=== PATIENT | female | born 1960 | race Caucasian/White ===

== ENCOUNTER → 2016-04-20 | Outpatient (REF) | payer OTHER ==
[~2016-04-20] MED LIST: AMLO10TA PO; AMLO10TA2 PO; AMLO5TAB2 PO; DRIS50002 PO; ESTR125TA PO; FILG30VL SC; NORCOTAB PO
[2016-04-20 17:53] LABS: CALCIUM OXALATE CRYSTALS SMALL
== END ==
LOC: M LAB REF 16:21
PROVIDERS: ATTEND Internal Medicine Medical Oncology
DX: C56.9 Malignant neoplasm of unspecified ovary (principal)

== ENCOUNTER → 2016-05-11 | Outpatient (REF) | payer OTHER | LOC: M LAB REF 16:25 | PROVIDERS: ATTEND Internal Medicine Medical Oncology | DX: C56.9 Malignant neoplasm of unspecified ovary (principal) ==

== ENCOUNTER → 2016-06-09 | Outpatient (REF) | payer OTHER | LOC: M LAB REF 16:59 | PROVIDERS: ATTEND Internal Medicine Medical Oncology | DX: C56.9 Malignant neoplasm of unspecified ovary (principal) ==

== ENCOUNTER → 2016-06-30 | Outpatient (REF) | payer OTHER | LOC: M LAB REF 16:24 | PROVIDERS: ATTEND Internal Medicine Medical Oncology | DX: C56.9 Malignant neoplasm of unspecified ovary (principal) ==

== ENCOUNTER → 2016-07-21 | Outpatient (REF) | payer OTHER | LOC: M LAB REF 15:19 | PROVIDERS: ATTEND Internal Medicine Medical Oncology | DX: C56.9 Malignant neoplasm of unspecified ovary (principal) ==

== ENCOUNTER → 2016-08-16 | Outpatient (REF) | payer OTHER | LOC: M LAB REF 17:07 | PROVIDERS: ATTEND Internal Medicine Medical Oncology | DX: C56.9 Malignant neoplasm of unspecified ovary (principal) ==

== ENCOUNTER → 2016-09-06 | Outpatient (CLI) | payer OTHER ==
--- NOTE | 2016-09-07 10:42 | REP ---
PET/CT: HISTORY: Restaging ovarian cancer. Increased tumor markers. Comparison PET/CT study March 02, 2016. TECHNIQUE: 50 minutes following the intravenous injection of a 8.8 mCi dose of F-18 FDG, three-dimensional PET scintigraphy is acquired from the skull base to the proximal thighs. Triplanar noncontrast CT scanning is acquired through the same anatomic range for attenuation correction, and image registration with scan parameters optimized to minimize radiation exposure to the patient. PET scintigraphy and CT datasets were fused and displayed on a workstation with multiplanar and projection display capability. PET/CT FINDINGS: There is a somewhat linear and nodular area of hypermetabolic tissue in the left pelvis above the level of the inguinal canal and medial to the anterior iliac crest. Maximum standard uptake value here remains elevated at 4.0 . This was previously 3.7. Uptake value is 3.9 on August 06, 2015 study in this location. Today's PET/CT study shows no hypermetabolic uptake discernible in the aortocaval lymph node which was visible in the August 06, 2015 study. No other abnormal abdominal or pelvic FDG accumulation is appreciated. No abnormal hypermetabolic uptake is seen in the chest. Head and neck FDG distribution is unremarkable. The previously noted internal mammary focus is no longer seen. IMPRESSION: Persistent soft tissue density with associated hypermetabolic uptake in the left anterolateral pelvic wall just above the inguinal canal. Degree of FDG uptake is essentially unchanged. No other abnormal hypermetabolic uptake seen. Signed by Panda Maddox MD 09/07/2016 02:09 P
== END ==
LOC: M PLARAD 15:17
PROVIDERS: ATTEND Internal Medicine Medical Oncology
DX: C56.9 Malignant neoplasm of unspecified ovary (principal)
CPT/HCPCS: 78815; A9552

== ENCOUNTER → 2016-09-30 | Outpatient (REF) | payer OTHER | LOC: M LAB REF 12:49 | PROVIDERS: ATTEND Internal Medicine Medical Oncology | DX: C56.9 Malignant neoplasm of unspecified ovary (principal) ==

== ENCOUNTER → 2016-10-20 | Outpatient (REF) | payer OTHER | LOC: M LAB REF 12:18 | PROVIDERS: ATTEND Internal Medicine Medical Oncology | DX: C56.9 Malignant neoplasm of unspecified ovary (principal) ==

== ENCOUNTER → 2016-11-10 | Outpatient (REF) | payer OTHER | LOC: M LAB REF 13:03 | PROVIDERS: ATTEND Internal Medicine Medical Oncology | DX: C56.9 Malignant neoplasm of unspecified ovary (principal) ==

== ENCOUNTER → 2016-12-01 | Outpatient (REF) | payer OTHER | LOC: M LAB REF 17:31 | PROVIDERS: ATTEND Internal Medicine Medical Oncology | DX: C56.9 Malignant neoplasm of unspecified ovary (principal) ==

== ENCOUNTER → 2017-01-12 | Outpatient (REF) | payer OTHER ==
[2017-01-12 19:35] LABS: FREE T4 0.96 NG/DL (0.76-1.46)
[2017-01-13 09:22] LABS: CA 125 27.8 U/ML (<30.2)
== END ==
LOC: M LAB REF 18:34
PROVIDERS: ATTEND Internal Medicine Medical Oncology
DX: C56.9 Malignant neoplasm of unspecified ovary (principal)

== ENCOUNTER → 2017-03-16 | Outpatient (REF) | payer OTHER | LOC: M LAB REF 17:47 | PROVIDERS: ATTEND Internal Medicine Medical Oncology | DX: C56.9 Malignant neoplasm of unspecified ovary (principal) ==

== ENCOUNTER → 2017-04-24 | Outpatient (CLI) | payer OTHER ==
[~2017-04-24] MED LIST changes: -AMLO10TA PO; -AMLO10TA2 PO; -AMLO5TAB2 PO; -DRIS50002 PO; -ESTR125TA PO; -FILG30VL SC; +GASTROGRAFIN SOLUTION 30ML (Q9963) As Ordered; +ISOVUE-370 76% 100ML VIAL (Q9967) As Ordered; -NORCOTAB PO
== END ==
LOC: M RAD 14:01
DX: C56.9 Malignant neoplasm of unspecified ovary (principal)

== ENCOUNTER → 2017-05-18 | Outpatient (REF) | payer OTHER ==
[2017-05-19 15:17] LABS: CA 125 32.2 U/ML (<30.2)
== END ==
LOC: M LAB REF 17:37
DX: C56.9 Malignant neoplasm of unspecified ovary (principal)

== ENCOUNTER → 2017-05-31 | Outpatient (CLI) | payer OTHER | LOC: M CARPUL 10:16 | DX: R06.02 Shortness of breath (principal) ==

== ENCOUNTER → 2017-06-22 | Outpatient (CLI) | payer OTHER | LOC: M SLEEP HO 15:13 | DX: G47.30 Sleep apnea, unspecified (principal) | CPT/HCPCS: G0399 ==

== ENCOUNTER → 2017-07-20 | Outpatient (REF) | payer OTHER ==
[2017-07-21 10:55] LABS: CA 125 27.6 U/ML (<30.2)
== END ==
LOC: M LAB REF 16:42
DX: C56.9 Malignant neoplasm of unspecified ovary (principal)

== ENCOUNTER → 2017-10-05 | Outpatient (REF) | payer OTHER ==
[2017-10-06 10:25] LABS: CA 125 29.5 U/ML (<30.2)
== END ==
LOC: M LAB REF 16:37
DX: C56.9 Malignant neoplasm of unspecified ovary (principal); C77.1 Secondary and unspecified malignant neoplasm of intrathoracic lymph nodes; C77.2 Secondary and unspecified malignant neoplasm of intra-abdominal lymph nodes; C77.5 Secondary and unspecified malignant neoplasm of intrapelvic lymph nodes

== ENCOUNTER → 2017-10-06 | Outpatient (CLI) | payer OTHER | LOC: M RAD 13:10 | DX: R22.1 Localized swelling, mass and lump, neck (principal) | CPT/HCPCS: 76536 ==

== ENCOUNTER → 2017-12-04 | Outpatient (REF) | payer OTHER ==
[2017-12-05 10:08] LABS: CA 125 28.2 U/ML (<30.2)
== END ==
LOC: M LAB REF 18:20
DX: C56.9 Malignant neoplasm of unspecified ovary (principal); C77.1 Secondary and unspecified malignant neoplasm of intrathoracic lymph nodes; C77.2 Secondary and unspecified malignant neoplasm of intra-abdominal lymph nodes; C77.5 Secondary and unspecified malignant neoplasm of intrapelvic lymph nodes
CPT/HCPCS: 86304

== ENCOUNTER → 2017-12-07 | Outpatient (CLI) | payer OTHER | LOC: M RAD 11:31 | DX: Z12.31 Encounter for screening mammogram for malignant neoplasm of breast (principal); R92.1 Mammographic calcification found on diagnostic imaging of breast | CPT/HCPCS: 77067 ==

== ENCOUNTER → 2017-12-28 | Outpatient (REF) | payer OTHER ==
[2017-12-28 20:04] LABS: APPEARANCE, URINE CLEAR (CLEAR); BACTERIA, URINE AUTO 1+ (NEGATIVE); BILIRUBIN, URINE AUTO NEGATIVE (NEGATIVE); BLOOD, URINE BLOOD 1+ (NEGATIVE); COLOR, URINE YELLOW (YELLOW); GLUCOSE, URINE (UA) AUTO NEGATIVE (NEGATIVE); KETONE, URINE AUTO NEGATIVE (NEGATIVE); LEUKOCYTE ESTERASE, URINE AUTO NEGATIVE (NEGATIVE); MUCUS, URINE SMALL (NEGATIVE); NITRITE, URINE AUTO NEGATIVE (NEGATIVE); PROTEIN, URINE AUTO 2+ mg/dL (NEGATIVE); RBC, URINE AUTO 1 /HPF (0-3); SPECIFIC GRAVITY URINE AUTO 1.013 (1.002-1.035); SQUAMOUS EPITHELIAL CELL UR AU 0 /HPF (0-6); UROBILINOGEN, URINE AUTO 0.2 mg/dL (0.0-2.0); WBC, URINE AUTO 1 /HPF (0-3)
== END ==
LOC: M LAB REF 17:24
DX: C56.9 Malignant neoplasm of unspecified ovary (principal); C77.1 Secondary and unspecified malignant neoplasm of intrathoracic lymph nodes; C77.2 Secondary and unspecified malignant neoplasm of intra-abdominal lymph nodes; C77.5 Secondary and unspecified malignant neoplasm of intrapelvic lymph nodes
CPT/HCPCS: 81001

== ENCOUNTER → 2018-01-22 | Outpatient (CLI) | payer OTHER ==
[2018-01-22 10:55] LABS: URINE TOTAL PROTEIN 96.1 MG/DL (0-12)
[2018-01-22 20:38] LABS: TOTAL PROTEIN 24 HOUR URINE 768.8 MG/24HR (50-150); TOTAL VOLUME, URINE 800 ML
== END ==
LOC: M RAD 06:37
DX: R07.89 Other chest pain (principal); R80.9 Proteinuria, unspecified; C56.9 Malignant neoplasm of unspecified ovary
CPT/HCPCS: 71046

== ENCOUNTER → 2018-02-20 | Outpatient (CLI) | payer OTHER | LOC: M PLARAD 10:27 | DX: C56.9 Malignant neoplasm of unspecified ovary (principal); R07.89 Other chest pain; R80.9 Proteinuria, unspecified | CPT/HCPCS: 78815 ==

== ENCOUNTER → 2018-11-21 | Outpatient (CLI) | payer OTHER ==
[~2018-11-21] MED LIST changes: +AMLO10TA PO; +AMLO10TA5 PO; +AMLO5TAB6 PO; +DRIS50003 PO; +ESTR125TA PO; +ESTR625TA PO; +FILG30VL SC; -GASTROGRAFIN SOLUTION 30ML (Q9963) As Ordered; +HYDR-3715 PO; -ISOVUE-370 76% 100ML VIAL (Q9967) As Ordered; +LOSA25TA14 PO; +LOVE0.4I2 SC; +NAPR-885 PO; +NAPR220C PO
--- NOTE | 2018-11-24 09:58 | REP ---
HISTORY: History of ovarian carcinoma. COMPARISON: All prior CT/PET examinations have been reviewed, the latest is dated 02/20/2018. That examination showed only minimally hypermetabolic uptake in the left anterior abdominal wall and felt to be stable from the prior exam of 09/06/2016. After the intravenous administration of 7.11 mCi of FDG-18, triplane whole body PET/CT was performed from the skull base to the mid thigh. Once again, there is an area of soft tissue thickening in the left anterior hemipelvis, the appearance of which has not changed significantly compared to the prior examinations of 09/06/2016 and 02/20/2018. When those examinations are compared to the 03/02/2016 exam, the amount of soft tissue thickening and degree of hypermetabolism has improved. On today's, examination the hypermetabolic activity has a maximal SUV value of 4.0. There are no other areas of abnormal hypermetabolic activity seen in the neck, chest, abdomen or pelvis. IMPRESSION: Possibly slightly more hypermetabolic, but otherwise stable area of tissue thickening and hypermetabolism seen in the left anterior hemipelvis as described above. Electronically Signed by Varinder Rayo DO 11/24/2018 09:05 A
== END ==
LOC: M PLARAD 14:29
PROVIDERS: ATTEND Internal Medicine Hematology & Oncology
DX: C56.9 Malignant neoplasm of unspecified ovary (principal)
CPT/HCPCS: 78815; A9552

== ENCOUNTER → 2019-02-05 | Outpatient (CLI) | payer OTHER ==
[~2019-02-05] MED LIST changes: +GASTROGRAFIN SOLUTION 30ML (Q9963) As Ordered ONE; +ISOVUE-370 76% 100ML VIAL (Q9967) As Ordered ONE; -LOVE0.4I2 SC; -NAPR-885 PO
--- NOTE | 2019-02-05 19:48 | REP ---
Clinical: Ovarian cancer for restaging. Technique: Axial contrast enhanced images from the lung bases to the pubic symphysis using oral (per protocol) and 100 ml Isovue 370 intravenous contrast material with coronal and sagittal re-formations as well as delayed images of the abdomen. Comparison: 04/24/2017. Findings: Lung bases demonstrate nonspecific chronic appearing interstitial changes without obvious nodule, consolidation or effusion. Visualized heart and pericardium normal. Vague area of low density possibly representing fatty infiltration within the left hepatic lobe is similar to prior examination. No further hepatic lesion identified. Spleen, pancreas, gallbladder, bilateral adrenal glands and kidneys are normal. The enteric system is without obstruction or acute inflammatory process. Postsurgical changes noted. Pelvis demonstrates collapsed bladder and evidence of prior hysterectomy without obvious recurrence or mass lesion noted. No pelvic fluid or ascites. No obvious adenopathy. No free air. Abdominal aorta without aneurysm or dissection. Osseous structures without focal abnormality noted. Impression: 1. Date stable area of presumed fatty infiltration within the left hepatic lobe. 2. Postsurgical changes. 3. No evidence for metastatic disease or recurrence. No ascites. No adenopathy. Electronically Signed by Basil Moraes MD 02/05/2019 07:40 P
== END ==
LOC: M RAD 13:02
PROVIDERS: ATTEND Internal Medicine Hematology & Oncology
DX: C56.9 Malignant neoplasm of unspecified ovary (principal)
CPT/HCPCS: 74177; Q9963; Q9967

== ENCOUNTER → 2019-02-18 | Outpatient (CLI) | payer OTHER ==
[~2019-02-18] MED LIST changes: -GASTROGRAFIN SOLUTION 30ML (Q9963) As Ordered ONE; -ISOVUE-370 76% 100ML VIAL (Q9967) As Ordered ONE; +NAPR-885 PO
[2019-02-18 09:26] LABS: BASO % 0.2 % (0.0-1.0); EOS # 0.1 10^3/uL (0.0-0.5); EOS % 0.6 % (0.0-3.0); HEMATOCRIT 34.5 % (36.0-47.0); HEMOGLOBIN 11.2 g/dl (12.0-15.5); LYMPH # 1.5 10^3/uL (1.5-5.0); LYMPH % 15.6 % (24.0-44.0); MEAN CORPUSCULAR HEMOGLOBIN 28.2 pg (27.0-33.0); MEAN CORPUSCULAR HGB CONC 32.5 g/dl (32.0-36.5); MEAN CORPUSCULAR VOLUME 86.9 fl (80.0-96.0); MONO # 0.6 10^3/uL (0.0-0.8); NEUTROPHILS # 7.2 10^3/uL (1.5-8.5); NEUTROPHILS % 77.3 % (36.0-66.0); PLATELET COUNT, AUTOMATED 300 10^3/uL (150-450); RED BLOOD COUNT 3.97 10^6/uL (4.00-5.40); WHITE BLOOD COUNT 9.4 10^3/uL (4.0-10.0)
[2019-02-18 09:59] LABS: ALBUMIN 3.2 GM/DL (3.2-5.2); ALT/SGPT 22 U/L (12-78); BILIRUBIN,TOTAL 0.5 MG/DL (0.2-1.0); BLOOD UREA NITROGEN 21 MG/DL (7-18); CALCIUM LEVEL 9.1 MG/DL (8.5-10.1); CARBON DIOXIDE LEVEL 23 MEQ/L (21-32); CHLORIDE LEVEL 107 MEQ/L (98-107); CREATININE FOR GFR 0.71 MG/DL (0.55-1.30); FREE T4 1.01 NG/DL (0.76-1.46); GLOMERULAR FILTRATION RATE > 60.0 (>51); GLUCOSE, FASTING 87 MG/DL (70-100); POTASSIUM SERUM 4.3 MEQ/L (3.5-5.1); SODIUM LEVEL 137 MEQ/L (136-145); TOTAL PROTEIN 7.1 GM/DL (6.4-8.2)
== END ==
LOC: M LAB 08:43
PROVIDERS: ATTEND Family Medicine
DX: R60.0 Localized edema (principal)

== ENCOUNTER 2019-02-20 07:51 | Emergency (ER) | payer OTHER ==
[~2019-02-20] VITALS: Ht 162.6 cm; Wt 65.2 kg
[~2019-02-20 07:51] MED LIST changes: -NAPR-885 PO
[2019-02-20] MEDS ORDERED: NAPR-885 PO (08:33)
[2019-02-20 09:00] VITALS: BP 121/75
== END 2019-02-20 09:06 | disposition home or self-care (01) ==
LOC: M ED 07:51
DX: T78.3XXA Angioneurotic edema, initial encounter (principal); X58.XXXA Exposure to other specified factors, initial encounter; Y92.89 Other specified places as the place of occurrence of the external cause; I10 Essential (primary) hypertension; G43.909 Migraine, unspecified, not intractable, without status migrainosus

== ENCOUNTER 2019-02-26 11:10 | Emergency (ER) | payer OTHER ==
[~2019-02-26] VITALS: Ht 162.6 cm; Wt 63.6 kg
[~2019-02-26 11:10] MED LIST changes: +NAPR-885 PO
[2019-02-26 12:46] LABS: BASO % 0.2 % (0.0-1.0); EOS % 0.1 % (0.0-3.0); HEMATOCRIT 33.9 % (36.0-47.0); HEMOGLOBIN 11.1 g/dl (12.0-15.5); LYMPH # 1.1 10^3/uL (1.5-5.0); LYMPH % 12.2 % (24.0-44.0); MEAN CORPUSCULAR HEMOGLOBIN 28.8 pg (27.0-33.0); MEAN CORPUSCULAR HGB CONC 32.7 g/dl (32.0-36.5); MEAN CORPUSCULAR VOLUME 87.8 fl (80.0-96.0); MONO # 0.7 10^3/uL (0.0-0.8); MONO % 7.8 % (0.0-5.0); NEUTROPHILS # 6.9 10^3/uL (1.5-8.5); NEUTROPHILS % 79.4 % (36.0-66.0); RED BLOOD COUNT 3.86 10^6/uL (4.00-5.40); WHITE BLOOD COUNT 8.8 10^3/uL (4.0-10.0)
[2019-02-26 13:05] LABS: PROTHROMBIN TIME 12.9 SECONDS (11.8-14.0)
[2019-02-26 13:13] LABS: ALBUMIN 2.8 GM/DL (3.2-5.2); ALT/SGPT 29 U/L (12-78); BILIRUBIN,DIRECT 0.1 MG/DL (0.0-0.2); BILIRUBIN,TOTAL 0.6 MG/DL (0.2-1.0); BLOOD UREA NITROGEN 10 MG/DL (7-18); CARBON DIOXIDE LEVEL 27 MEQ/L (21-32); CHLORIDE LEVEL 102 MEQ/L (98-107); CPK CREATINE PHOSPHOKINASE 69 U/L (26-192); CREATININE FOR GFR 0.76 MG/DL (0.55-1.30); GLOMERULAR FILTRATION RATE > 60.0 (>51); GLUCOSE, FASTING 96 MG/DL (70-100); MB/CK RELATIVE INDEX 1.45 (< OR =4); NT-PRO BNP 139 PG/ML (<125); POTASSIUM SERUM 4.1 MEQ/L (3.5-5.1); SODIUM LEVEL 137 MEQ/L (136-145); TROPONIN I < 0.02 NG/ML (< 0.10)
[2019-02-26] MEDS ORDERED: ISOVUE-370 76% 100ML VIAL (Q9967) As Ordered ONE (13:19)
--- NOTE | 2019-02-26 15:28 | REP ---
CT chest with IV contrast: History: Edema. The patient gives a history of ovarian carcinoma. Comparison chest CT study April 24, 2017. CT contrast dose: 75 mL of intravenous Isovue [address] findings: Preliminary digital restrooms or lounges maid views are unremarkable. There is a right internal jugular central venous Xcvagg-L-Aiap catheter again noted. A right upper arm vein was used for the contrast injection. There are abnormal venous collaterals opacified in the right neck and right upper chest. The internal tip of the catheter is seen at the SVC right atrial junction. There is un-enhancing soft tissue density surrounding the distal catheter in the SVC and the superior vena cava appears to be occluded. In addition, a segment of the right subclavian vein appears to be occluded. Contrast opacified blood is seen refluxing down the azygos vein into the upper abdomen. 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 No definite adenopathy or mass lesion is observed. There is a small amount of pericardial fluid and there are small bilateral pleural effusions. There is good opacification of the pulmonary arterial tree and there is no CT evidence of pulmonary embolus. Thoracic aorta enhances homogeneously without evidence of aneurysm or dissection. No adrenal lesion is seen. The visualized upper abdominal structures are unremarkable. There is minimal plate-like atelectasis in the lingula and right middle lobe. There is a small stable subcentimeter nodular density in the right lower lobe on page 68 of 124 in series 201 of today's study. This is unchanged from April 24, 2017. No other pulmonary nodule is seen. Impression: 1. 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 Findings were telephoned to the referring provider at the time of this dictation. 2. Small bilateral pleural effusions right greater than left. A tiny pericardial effusion. 3. Discoid atelectasis in the lingula and right middle lobe. Electronically Signed by Panda Maddox MD 02/26/2019 05:58 P
[2019-02-26 18:38] VITALS: BP 129/87
--- NOTE | 2019-02-26 23:23 | ECGEPIP ---
[facility] - ED Test Date: 2019-02-26 Pat Name: SAMARIA SAWANT Department: Room: - Gender: Female [employer]: RODOLFO : 1960 Requested By: COMFORT FONG Order Number: [id number] Reading MD: Dave Kendrick Measurements Intervals [place] Rate: 92 P: 68 DC: 142 QRS: 73 QRSD: 98 T: 29 QT: 354 QTc: 438 Interpretive Statements SINUS RHYTHM SIMILAR TO 10/12/15 Electronically Signed on 02-26-2019 23:22:52 EST by Dave Kendrick
== END 2019-02-26 18:49 | disposition short-term general hospital (02) ==
LOC: M ED 11:10
DX: I82.210 Acute embolism and thrombosis of superior vena cava (principal); I10 Essential (primary) hypertension; Z79.899 Other long term (current) drug therapy
CPT/HCPCS: 36415; 71260; 80048; 80076; 82550; 82553; 83605; 83880; 84484; 85025; 85610; 93005; 93041; 94760; 99285; Q9967

== ENCOUNTER → 2019-03-27 | Outpatient (CLI) | payer OTHER ==
[~2019-03-27] MED LIST changes: +LOVE0.4I2 SC
--- NOTE | 2019-03-28 09:16 | REP ---
PET/CT: History: Restaging ovarian cancer. Increase in tumor marker CA-125. Comparisons: The most recent comparison PET-CT study is from November 21, 2018. PET CT scans from February 20, 2018 and September 06, [address] are [address] reviewed[address] CT study of the abdomen and pelvis February 05, [address] February 26, 2019 are also reviewed. TECHNIQUE: 60 minutes following the intravenous injection of a 8.96 mCi dose of F-18 FDG, three-dimensional PET scintigraphy is acquired from the skull base to the proximal thighs. Triplanar noncontrast CT scanning is acquired through the same anatomic range for attenuation correction, and image registration with scan parameters optimized to minimize radiation exposure to the patient. PET scintigraphy and CT datasets were fused and displayed on a workstation with multiplanar and projection display capability. PET/CT Findings: In the interval since the last exam, the patient's Nxvnuk-Q-Ylyu catheter has been removed and there is a focus of minimally increased uptake at the site where the reservoir had been in place in the subclavicular subcutaneous soft tissues on the right. This is not hypermetabolic and is not felt to be significant. There is minimal uptake associated with recent subcutaneous injections in the anterior abdominal subcutaneous fat. Previous PET CT studies have shown two sites of interest most recently, these are an aortocaval lymph node in the upper abdomen retroperitoneum, and a linear area of increased uptake along the left anterior pelvic wall. There is no new focus of increased uptake on today's PET CT. The recently noted pleural effusions have resolved. The aortocaval lymph node region is felt to be unchanged with maximum standard uptake value here 2.90 today, 3.46 November 21, 2018 by my measurement, 2.80 February 20, 2018, and 5.95 on September 06, 2016. There is no morphologic change or progression seen on accompanying CT. With regard to the linear area of increased uptake and subtle soft tissue fullness and increased CT density in the left anterior pelvic wall, today's study shows hypermetabolic activity here with maximum standard uptake value 4.33. Maximum standard uptake value on the most recent prior PET-CT study in this region was 4.44 by my measurement November 21, 2018, and 3.28 on February 2018, and 8.62 on September 06, 2016. There is no morphologic evidence or scintigraphic evidence of progression. Impression: There are two foci of slightly increased metabolic activity again noted as above. One in the aortocaval lymph node region and the other in the left anterior pelvic wall. These are felt to be unchanged from the two most recent prior PET-CT studies. Both of these two sides showed more avid activity on the September 06, 2016 scan. No new focus of hypermetabolic uptake is seen. Electronically Signed by Panda Maddox MD 03/28/2019 09:08 A
== END ==
LOC: M PLARAD 14:12
PROVIDERS: ATTEND Nurse Practitioner Women's Health
DX: C56.9 Malignant neoplasm of unspecified ovary (principal)
CPT/HCPCS: 78815; A9552

== ENCOUNTER → 2019-08-21 | Outpatient (CLI) | payer OTHER ==
[2019-08-21 16:54] LABS: BASO % 0.6 % (0.0-1.0); EOS # 0.1 10^3/uL (0.0-0.5); EOS % 1.8 % (0.0-3.0); HEMATOCRIT 38.5 % (36.0-47.0); HEMOGLOBIN 12.1 g/dl (12.0-15.5); LYMPH # 2.2 10^3/uL (1.5-5.0); LYMPH % 32.8 % (24.0-44.0); MEAN CORPUSCULAR HEMOGLOBIN 27.1 pg (27.0-33.0); MEAN CORPUSCULAR HGB CONC 31.4 g/dl (32.0-36.5); MEAN CORPUSCULAR VOLUME 86.3 fl (80.0-96.0); MONO # 0.6 10^3/uL (0.0-0.8); MONO % 8.6 % (0.0-5.0); NEUTROPHILS # 3.8 10^3/uL (1.5-8.5); NEUTROPHILS % 56.1 % (36.0-66.0); PLATELET COUNT, AUTOMATED 373 10^3/uL (150-450); RED BLOOD COUNT 4.46 10^6/uL (4.00-5.40); WHITE BLOOD COUNT 6.8 10^3/uL (4.0-10.0)
[2019-08-21 17:13] LABS: BLOOD UREA NITROGEN 15 MG/DL (7-18); CARBON DIOXIDE LEVEL 28 MEQ/L (21-32); CHLORIDE LEVEL 103 MEQ/L (98-107); CREATININE FOR GFR 0.77 MG/DL (0.55-1.30); GLOMERULAR FILTRATION RATE > 60.0 (>51); GLUCOSE, FASTING 84 MG/DL (70-100); POTASSIUM SERUM 4.3 MEQ/L (3.5-5.1); SODIUM LEVEL 138 MEQ/L (136-145)
[2019-08-21 17:14] LABS: ALBUMIN 3.8 GM/DL (3.2-5.2); ALT/SGPT 24 U/L (12-78); BILIRUBIN,TOTAL 0.8 MG/DL (0.2-1.0); CALCIUM LEVEL 9.4 MG/DL (8.5-10.1); TOTAL PROTEIN 7.5 GM/DL (6.4-8.2)
[2019-08-23 10:42] LABS: CA 125 21.3 U/ML (<30.2)
== END ==
LOC: M LAB 16:11
PROVIDERS: ATTEND Internal Medicine Medical Oncology
DX: C56.9 Malignant neoplasm of unspecified ovary (principal)

== ENCOUNTER → 2020-03-31 | Outpatient (CLI) | payer OTHER ==
[~2020-03-31] MED LIST changes: -AMLO10TA5 PO; +AMLO1TAB24 PO; +AMLO1TAB25 PO; -AMLO5TAB6 PO; +GASTROGRAFIN SOLUTION 30ML (Q9963) As Ordered ONE; +ISOVUE-370 76% 100ML VIAL As Ordered ONE; +VITA50005 PO
--- NOTE | 2020-03-31 16:38 | REP ---
INDICATION: OVARION CA. COMPARISON: Abdomen and pelvis CT with IV and bowel contrast dated 02/05/2019. TECHNIQUE: Abdomen and pelvis CT with IV and bowel contrast. FINDINGS: The visualized lung brown are unremarkable. The hepatic parenchyma demonstrates a focal zone of decreased density adjacent to the falciform ligament without enhancement, similar to the prior study. This is nonspecific and could represent focal fatty replacement or hepatic nodule. There is no interval size increase, in fact, the area appears slightly decreased in size today. Remainder of the hepatic parenchyma is homogeneous and unremarkable. The gallbladder, pancreas and spleen are normal size and unremarkable. The adrenals are unremarkable. The kidneys are unremarkable. There is no hydronephrosis. The abdominal aorta is unremarkable. There are numerous aortocaval surgical clips, unchanged. There is no periaortic or 8 or aortocaval lymph node enlargement. The bowel and mesentery are unremarkable except that the cecum is enlarged and occupies the midline of the pelvis. This is unchanged. There circumferential surgical clips in the descending colon. This is unchanged. The patient has a history of colon resection for obstruction. Pelvis: There is a hysterectomy. The vaginal cuff and adnexa are unremarkable. There is no pelvic adenopathy. There is a small focal area of soft tissue density at the superior margin of the left inguinal canal, unchanged, of uncertain significance. May be slightly smaller today. There are no lytic, blastic or destructive skeletal changes. There is no ascites. There are multiple surgical clips along the peritoneal surface of the anterior right abdominal wall, unchanged. There is no evidence of nodularity or tumor in this location. IMPRESSION: There is no evidence of adenopathy, ascites or metastatic disease. Focal hypodense area in the liver adjacent the falciform ligament is slightly smaller in size. Focal air soft tissue density at the superior margin of the left inguinal canal is slightly smaller in size. Patient has had previous colon surgery. The cecum is enlarged and occupies the pelvis centrally. This is unchanged. <Electronically signed by Oz Morales > 03/31/20 [id number]
== END ==
LOC: M RAD 12:14
PROVIDERS: ATTEND Specialist
DX: C56.9 Malignant neoplasm of unspecified ovary (principal); Z90.79 Acquired absence of other genital organ(s)
CPT/HCPCS: 74177; Q9963; Q9967